=== PATIENT | female | born 1965 | race Caucasian/White ===

== ENCOUNTER 2018-06-14 20:58 | Emergency (ER) | payer OTHER ==
[2018-06-14 21:03] VITALS: BP 122/69
--- NOTE | 2018-06-14 21:23 | EDPHY ---
H & P Time Seen by Provider: 06/14/18 21:21 HPI/ROS: CHIEF COMPLAINT: Possible reaction to marijuana HISTORY OF PRESENT ILLNESS: Patient is a 53-year-old female her with concern for possible reaction to marijuana. She states that approximately 1 hr ago she was smoking concentrated marijuana with her and medially after smoking she developed sensation of severe anxiety and difficulty hearing. She states sooner after the symptoms began to pta and have resolved at this time. She denies any chest pain, shortness of breath, numbness, weakness, any persistent hearing changes or vision changes. She has no prior history of CVA. She uses no other illicit drugs. REVIEW OF SYSTEMS: Constitutional: No fever, no chills. Eyes: No discharge. ENT: No sore throat. Cardiovascular: No chest pain, no palpitations. Respiratory: No cough, no shortness of breath. Gastrointestinal: No abdominal pain, no vomiting. Genitourinary: No hematuria. Musculoskeletal: No back pain. Skin: No rashes. Neurological: No headache. Smoking Status: Never smoked Physical Exam: General Appearance: Alert and no distress. Eyes: Pupils equal and round no injection. Respiratory: Chest is nontender, lungs are clear to auscultation. Cardiac: regular rate and rhythm. Gastrointestinal: Abdomen is soft and nontender, no masses, bowel sounds normal. Musculoskeletal: Neck is supple and nontender. Extremities have full range of motion and are nontender. Skin: No rashes or lesions. Neuro: Cranial nerves grossly intact. No ulnar drift. Equal grasp. Constitutional: Initial Vital Signs Temperature (C) 36.8 C 06/14/18 21:00 Heart Rate 84 06/14/18 21:00 Respiratory Rate 16 06/14/18 21:00 Blood Pressure 122/69 H 06/14/18 21:00 O2 Sat (%) 96 06/14/18 21:00 O2 Delivery Mode Room Air Allergies/Adverse Reactions: No Known Allergies Allergy (Unverified 06/14/18 21:03) Medical Decision Making ED Course/Re-evaluation: 53-year-old female here with auditory changes and anxiety after smoking marijuana. She is symptom free at this time and requesting discharge. On exam she is alert and oriented with no focal neurologic deficits and has no other complaints. This is likely a drug reaction. Indications for return to ER were discussed. Differential Diagnosis: CVA, electrolyte disturbance, cardiac arrhythmia, anemia Departure - Departure Disposition: Home, Routine, Self-Care Clinical Impression: Adverse drug reaction Condition: Good Instructions: Medicinal Use of Cannabis (ED) Additional Instructions: Return to the ER if he have any worsening or worrisome symptoms. Referrals: [facility],. [Clinic] - As per Instructions
== END 2018-06-14 21:28 | disposition home or self-care (01) ==
DX: T40.7X5A Adverse effect of cannabis (derivatives), initial encounter (principal)